=== PATIENT | male | born 1985 | race Caucasian/White ===

== ENCOUNTER → 2016-11-06 | Outpatient (REF) | payer OTHER | LOC: M LAB REF 17:27 | PROVIDERS: ATTEND Otolaryngology | DX: H66.21 Chronic atticoantral suppurative otitis media, right ear (principal) ==

== ENCOUNTER → 2018-12-18 | Outpatient (REF) | payer OTHER | LOC: M LAB REF 12-17 10:37 | PROVIDERS: ATTEND Otolaryngology | DX: H73.11 Chronic myringitis, right ear (principal) ==